=== PATIENT | female | born 1955 | race Caucasian/White ===

== ENCOUNTER 2018-07-14 10:09 | Emergency (ER) | payer OTHER ==
[~2018-07-14] VITALS: Ht 160 cm; Wt 61.2 kg
[~2018-07-14 10:09] MED LIST: ALEN70; Calcium + Vita1 EACH PO; DULO30 PO; FLONASE ALLERG9.9 ML; Percocet 5-3251 EACH PO; RANI150; SIMV10 PO; TRAZ50
[2018-07-14 10:49] LABS: BASOPHILS ABSOLUTE AUTO 0.03 K/mm3 (0.00-0.23); BASOPHILS PERCENT AUTO 1 % (0-2); EOSINOPHILS ABSOLUTE AUTO 0.05 K/mm3 (0.00-0.68); EOSINOPHILS PERCENT AUTO 1 % (0-6); Hemoglobin 11.4 g/dL (11.5-16.0); IMMATURE GRAN ABSOLUTE AUTO 0.02 K/mm3 (0.00-0.10); IMMATURE GRAN PERCENT AUTO 0 % (0-1); LYMPHOCYTES ABSOLUTE AUTO 1.44 K/mm3 (0.84-5.20); LYMPHOCYTES PERCENT AUTO 27 % (21-46); MONOCYTES ABSOLUTE AUTO 0.31 K/mm3 (0.16-1.47); MONOCYTES PERCENT AUTO 6 % (4-13); Mean Corpuscular HGB 31.2 pg (26.0-34.0); Mean Corpuscular HGB Conc 32.6 g/dL (31.5-36.5); Mean Corpuscular Volume 96 fL (80-100); NEUTROPHILS PERCENT AUTO 65 % (41-73); Platelet Count 372 K/mm3 (150-400); RDW Coefficient Variation 13.9 % (11.7-14.2); RDW Standard Deviation 49.5 fL (35.1-46.3); Red Blood Cell Count 3.65 M/mm3 (3.80-5.20); White Blood Cell Count 5.25 K/mm3 (4.00-11.30)
[2018-07-14 11:01] LABS: Source, Urine Clean Catch
[2018-07-14 11:10] LABS: Alanine Aminotransfer (ALT/SGP 22 U/L (12-78); Albumin, Blood 3.8 g/dL (3.4-5.0); Alk Phos 65 U/L (50-136); Anion Gap 7 mmol/L (6-16); Aspartate Aminotrans (AST/SGOT 22 U/L (12-37); Bilirubin, Total 0.3 mg/dL (0.1-1.0); Blood Urea Nitrogen 7 mg/dL (8-24); Bun/Creatinine Ratio 11.8 (12.0-20.0); CO2, Blood 28 mmol/L (21-32); Calcium, Blood 8.3 mg/dL (8.5-10.1); Chloride, Blood 107 mmol/L (98-108); Creatinine, Blood 0.59 mg/dL (0.40-1.00); Globulin, Blood 3.8 g/dL (2.2-4.0); Glomerular Filtration Rate >60 (60-); Glucose, Blood 115 mg/dL (70-99); Potassium, Blood 3.4 mmol/L (3.5-5.5); Sodium, Blood 142 mmol/L (136-145); Total Protein, Blood 7.6 g/dL (6.4-8.2)
[2018-07-14 11:11] LABS: Appearance, Urine Clear (Clear); Bilirubin, Urine Neg (Neg); Blood, Urine Neg (Neg); Color, Urine Yellow (P-Yellow); Glucose Qualitative, Urine Neg (Neg); Ketones, Urine 3+ (Neg); Leukocyte Esterase, Urine Neg (Neg); Nitrite, Urine Neg (Neg); Protein, Urine Neg (Neg); Urobilinogen, Urine NORM (Normal)
[2018-07-14] MEDS ORDERED: HEARTBURN RELI150 MG PO (13:43)
[2018-07-14] MEDS ORDERED: CHLO25 PO (14:35)
== END 2018-07-14 15:17 | disposition home or self-care (01) ==
LOC: ER 10:09
PROVIDERS: Physician Assistant
DX: T51.2X1A Toxic effect of 2-Propanol, accidental (unintentional), initial encounter (principal); F10.10 Alcohol abuse, uncomplicated; E78.00 Pure hypercholesterolemia, unspecified; Z79.899 Other long term (current) drug therapy; Z87.891 Personal history of nicotine dependence; Y90.1 Blood alcohol level of 20-39 mg/100 ml
CPT/HCPCS: 36415; 80053; 81003; 83690; 83930; 85025; 99284; G0480

== ENCOUNTER → 2019-05-04 | Outpatient (CLI) | payer OTHER ==
[~2019-05-04] MED LIST changes: +CHLO25 PO; +HEARTBURN RELI150 MG PO
[2019-05-05 09:40] LABS: Candida species (DNA Probe) Negative (NEGATIVE); G. vaginalis (DNA Probe) Negative (NEGATIVE); T. vaginalis (DNA Probe) Negative (NEGATIVE)
== END | disposition home or self-care (01) ==
LOC: LAB SHORT 10:54 → LAB 10:54
PROVIDERS: Advanced Practice Midwife
DX: N76.0 Acute vaginitis (principal)
CPT/HCPCS: 87480; 87510; 87660

== ENCOUNTER 2021-03-12 08:39 | Day surgery (SDC) | payer OTHER ==
[~2021-03-12] VITALS: Ht 162.6 cm; Wt 64.4 kg
== END 2021-03-12 10:50 | disposition home or self-care (01) ==
LOC: ORSCSDS 08:39
PROVIDERS: Internal Medicine Gastroenterology
PROC: 0DBN8ZX Excision of Sigmoid Colon, Via Natural or Artificial Opening Endoscopic, Diagnostic (ICD-10-PCS; principal; 2021-03-12 10:00)
PROC: 0DBH8ZX Excision of Cecum, Via Natural or Artificial Opening Endoscopic, Diagnostic (ICD-10-PCS; principal; 2021-03-12 10:00)
DX: Z12.11 Encounter for screening for malignant neoplasm of colon (principal); Z86.010 Personal history of colon polyps; Z80.0 Family history of malignant neoplasm of digestive organs; D12.0 Benign neoplasm of cecum; D12.5 Benign neoplasm of sigmoid colon; Z79.899 Other long term (current) drug therapy
CPT/HCPCS: 88305; J2704; J7120

== ENCOUNTER 2022-01-25 10:01 | Emergency (ER) | payer OTHER ==
[~2022-01-25] VITALS: Ht 162.6 cm; Wt 68.0 kg
[2022-01-25 10:31] LABS: BASOPHILS ABSOLUTE AUTO 0.04 K/mm3 (0.00-0.23); BASOPHILS PERCENT AUTO 1 % (0-2); EOSINOPHILS ABSOLUTE AUTO 0.14 K/mm3 (0.00-0.68); EOSINOPHILS PERCENT AUTO 2 % (0-6); Hematocrit 33.7 % (33.0-51.0); Hemoglobin 11.1 g/dL (11.5-16.0); IMMATURE GRAN ABSOLUTE AUTO 0.02 K/mm3 (0.00-0.10); IMMATURE GRAN PERCENT AUTO 0 % (0-1); LYMPHOCYTES ABSOLUTE AUTO 2.64 K/mm3 (0.84-5.20); LYMPHOCYTES PERCENT AUTO 31 % (21-46); MONOCYTES ABSOLUTE AUTO 0.53 K/mm3 (0.16-1.47); MONOCYTES PERCENT AUTO 6 % (4-13); Mean Corpuscular HGB 31.4 pg (26.0-34.0); Mean Corpuscular HGB Conc 32.9 g/dL (31.5-36.5); Mean Corpuscular Volume 95 fL (80-100); Mean Platelet Volume 9.2 fL (9.1-12.4); NEUTROPHILS PERCENT AUTO 60 % (41-73); Platelet Count 326 K/mm3 (150-400); RDW Coefficient Variation 12.3 % (11.7-14.2); RDW Standard Deviation 43.1 fL (35.1-46.3); Red Blood Cell Count 3.54 M/mm3 (3.80-5.20); White Blood Cell Count 8.47 K/mm3 (4.00-11.30)
[2022-01-25 10:44] LABS: Albumin, Blood 3.7 g/dL (3.4-5.0); Bilirubin, Total 0.3 mg/dL (0.1-1.0); Bun/Creatinine Ratio 19.9 (12.0-20.0); Creatinine, Blood 0.7 mg/dL (0.40-1.00); Globulin, Blood 3.6 g/dL (2.2-4.0); Potassium, Blood 3.7 mmol/L (3.5-5.5); Total Protein, Blood 7.3 g/dL (6.4-8.2)
[2022-01-25 11:06] LABS: Source, Urine Straight Cath
[2022-01-25 11:20] LABS: Appearance, Urine Clear (Clear); Bilirubin, Urine Neg (Neg); Blood, Urine Neg (Neg); Color, Urine Yellow (P-Yellow); Glucose Qualitative, Urine Neg (Neg); Ketones, Urine Neg (Neg); Leukocyte Esterase, Urine Neg (Neg); Nitrite, Urine Neg (Neg); Protein, Urine Neg (Neg); Urobilinogen, Urine NORM (Normal)
[2022-01-25 11:52] LABS: U Amphetamine Screen Not Detected; U Barbituate Screen Not Detected; U Benzodiazapine Screen Not Detected; U Buprenorphine Screen Not Detected; U Cannabinoids Screen Not Detected; U Cocaine Screen Not Detected; U Methadone Screen Not Detected; U Methamphetamine Screen Not Detected; U Opiates Screen DETECTED; U Oxycodone Screen Not Detected; U Phencyclidine Screen Not Detected; U Propoxyphene Screen Not Detected
[2022-01-25] MEDS ORDERED: ACETAMINOPHEN500 MG PO (12:59)
== END 2022-01-25 14:45 | disposition home or self-care (01) ==
LOC: ER 10:01
PROVIDERS: Emergency Medicine
DX: S00.83XA Contusion of other part of head, initial encounter (principal); S20.219A Contusion of unspecified front wall of thorax, initial encounter; S16.1XXA Strain of muscle, fascia and tendon at neck level, initial encounter; V48.5XXA Car driver injured in noncollision transport accident in traffic accident, initial encounter; Z72.89 Other problems related to lifestyle; Z87.891 Personal history of nicotine dependence
CPT/HCPCS: 70450; 71260; 72125; 74177; 80053; 81003; 83690; 85025; 93005; 93010; G0480; J1170; J2405; J7030; Q9967

== ENCOUNTER 2023-02-23 11:57 | Emergency (ER) | payer OTHER ==
[~2023-02-23] VITALS: Ht 162.6 cm; Wt 68.0 kg
[~2023-02-23 11:57] MED LIST changes: +ACETAMINOPHEN500 MG PO
[2023-02-23 12:47] LABS: BASOPHILS ABSOLUTE AUTO 0.03 K/mm3 (0.00-0.23); BASOPHILS PERCENT AUTO 0 % (0-2); EOSINOPHILS ABSOLUTE AUTO 0.05 K/mm3 (0.00-0.68); EOSINOPHILS PERCENT AUTO 1 % (0-6); Hematocrit 37.8 % (33.0-51.0); Hemoglobin 12.8 g/dL (11.5-16.0); IMMATURE GRAN ABSOLUTE AUTO 0.03 K/mm3 (0.00-0.10); IMMATURE GRAN PERCENT AUTO 0 % (0-1); LYMPHOCYTES ABSOLUTE AUTO 2.69 K/mm3 (0.84-5.20); LYMPHOCYTES PERCENT AUTO 34 % (21-46); MONOCYTES ABSOLUTE AUTO 0.57 K/mm3 (0.16-1.47); MONOCYTES PERCENT AUTO 7 % (4-13); Mean Corpuscular HGB Conc 33.9 g/dL (31.5-36.5); Mean Corpuscular Volume 89 fL (80-100); NEUTROPHILS ABSOLUTE AUTO 4.47 K/mm3 (1.96-9.15); NEUTROPHILS PERCENT AUTO 57 % (41-73); Platelet Count 313 K/mm3 (150-400); RDW Coefficient Variation 14.7 % (11.7-14.2); RDW Standard Deviation 47.8 fL (35.1-46.3); Red Blood Cell Count 4.26 M/mm3 (3.80-5.20); White Blood Cell Count 7.84 K/mm3 (4.00-11.30)
[2023-02-23 13:04] LABS: Albumin, Blood 4.3 g/dL (3.4-5.0); Albumin/Globulin Ratio 1.2 (0.8-1.8); Bilirubin, Total 0.3 mg/dL (0.1-1.0); Bun/Creatinine Ratio 6.5 (12.0-20.0); Creatinine, Blood 0.77 mg/dL (0.40-1.00); Globulin, Blood 3.6 g/dL (2.2-4.0); Potassium, Blood 3.1 mmol/L (3.5-5.5); Total Protein, Blood 7.9 g/dL (6.4-8.2)
[2023-02-23 15:47] LABS: Base Excess Venous 1.5 mmol/L; Bicarbonate Venous 25.3 mmol/L (24.0-30.0); PCO2 Venous 41.7 mmHg (38-42); pH Blood Venous 7.41 (7.34-7.37)
[2023-02-23 16:32] LABS: Ethanol (Alcohol), Blood, Med <3 mg/dL; Magnesium, Blood 2.3 mg/dL (1.6-2.4); Salicylate <1.7 mg/dL (2.8-20.0)
[2023-02-23 16:35] LABS: Influenza A, PCR NEGATIVE (NEGATIVE); Influenza B, PCR NEGATIVE (NEGATIVE); Resp Syncytial Virus, PCR NEGATIVE (NEGATIVE); SARS-Cov-2 (COVID-19) PCR, MMC NEGATIVE (NEGATIVE)
[2023-02-23 17:10] LABS: Beta-hydroxybutyrate 8.2 mg/dL (0.2-2.8); Phosphorus, Blood 2.3 mg/dL (2.5-4.9)
[2023-02-23 17:28] LABS: Acetaminophen, Random <2.0 ug/mL (10.0-30.0)
[2023-02-23] MEDS ORDERED: ONDA4ODT MM (18:32)
[2023-02-23 19:39] VITALS: BP 133/73
== END 2023-02-23 19:30 | disposition home or self-care (01) ==
LOC: ER 11:57
PROVIDERS: Emergency Medicine; Physician Assistant
DX: R11.2 Nausea with vomiting, unspecified (principal); Z79.899 Other long term (current) drug therapy; E78.5 Hyperlipidemia, unspecified; Z87.891 Personal history of nicotine dependence
CPT/HCPCS: 0241U; 74177; 80053; 82010; 82803; 83690; 83735; 84100; 84484; 85025; 93005; 93010; 96374-59; 99284-25; G0480; J2405; J7030; Q9967

== ENCOUNTER 2023-03-03 09:05 | Emergency (ER) | payer OTHER | END 2023-03-03 11:17 | disposition home or self-care (01) | LOC: ER 09:05 | DX: R11.2 Nausea with vomiting, unspecified (principal); Z79.899 Other long term (current) drug therapy; E78.5 Hyperlipidemia, unspecified; Z87.891 Personal history of nicotine dependence ==

== ENCOUNTER 2023-03-10 09:07 | Inpatient (IN) | payer OTHER ==
[~2023-03-10] VITALS: Ht 162.6 cm; Wt 66.8 kg
[~2023-03-10 09:07] MED LIST changes: -HEARTBURN RELI150 MG PO; +ONDA4ODT MM; +Omeprazole20 M1 PO; +PHENERGAN25 MG PR; -SIMV10 PO; +Zocor10 MG PO
[2023-03-10 11:05] LABS: BASOPHILS ABSOLUTE AUTO 0.03 K/mm3 (0.00-0.23); BASOPHILS PERCENT AUTO 1 % (0-2); EOSINOPHILS ABSOLUTE AUTO 0.02 K/mm3 (0.00-0.68); EOSINOPHILS PERCENT AUTO 0 % (0-6); Hematocrit 30.1 % (33.0-51.0); Hemoglobin 10.4 g/dL (11.5-16.0); IMMATURE GRAN ABSOLUTE AUTO 0.03 K/mm3 (0.00-0.10); IMMATURE GRAN PERCENT AUTO 1 % (0-1); LYMPHOCYTES ABSOLUTE AUTO 2.23 K/mm3 (0.84-5.20); LYMPHOCYTES PERCENT AUTO 37 % (21-46); MONOCYTES ABSOLUTE AUTO 0.77 K/mm3 (0.16-1.47); MONOCYTES PERCENT AUTO 13 % (4-13); Mean Corpuscular HGB 30.3 pg (26.0-34.0); Mean Corpuscular HGB Conc 34.6 g/dL (31.5-36.5); Mean Corpuscular Volume 88 fL (80-100); Mean Platelet Volume 9.3 fL (9.1-12.4); NEUTROPHILS ABSOLUTE AUTO 2.94 K/mm3 (1.96-9.15); NEUTROPHILS PERCENT AUTO 49 % (41-73); Platelet Count 190 K/mm3 (150-400); RDW Coefficient Variation 14.6 % (11.7-14.2); RDW Standard Deviation 47.8 fL (35.1-46.3); Red Blood Cell Count 3.43 M/mm3 (3.80-5.20); White Blood Cell Count 6.02 K/mm3 (4.00-11.30)
[2023-03-10 11:33] LABS: Albumin/Globulin Ratio 0.9 (0.8-1.8); Bilirubin, Total 0.2 mg/dL (0.1-1.0); Bun/Creatinine Ratio 3.2 (12.0-20.0); Calcium, Blood 7.9 mg/dL (8.5-10.1); Creatinine, Blood 0.62 mg/dL (0.40-1.00); Globulin, Blood 3.5 g/dL (2.2-4.0); Potassium, Blood 2.7 mmol/L (3.5-5.5); Total Protein, Blood 6.5 g/dL (6.4-8.2)
[2023-03-10 12:00] LABS: Source, Urine Straight Cath
[2023-03-10 12:03] LABS: Appearance, Urine Clear (Clear); Bilirubin, Urine Neg (Neg); Blood, Urine Neg (Neg); Color, Urine Yellow (P-Yellow); Glucose Qualitative, Urine Neg (Neg); Ketones, Urine 3+ (Neg); Leukocyte Esterase, Urine Neg (Neg); Nitrite, Urine Neg (Neg); Protein, Urine 1+ (Neg); Specific Gravity, Urine 1.005 (1.003-1.022); Urobilinogen, Urine NORM (Normal)
[2023-03-10] MEDS ORDERED: BUSP5 PO (14:12)
[2023-03-10] MEDS ORDERED: NEURONTIN300 MG PO (14:12)
[2023-03-10] MEDS ORDERED: CELE100 PO (14:12)
[2023-03-10 14:38] VITALS: BP 128/70
[2023-03-10] MEDS ORDERED: GABA300 PO (14:39)
--- NOTE | 2023-03-10 17:18 | NUR ---
PT ARRIVED TO THE UNIT FROM ED. ORIENTED TO THE ROOM. SHE REPORTS SHE IS NOT CURRENTLY HAVING NAUSEA. SHE FELL ASLEEP SHORTLY AFTER ARRIVAL AND HAS BEEN SLEEPING SINCE. HER BED IS IN THE LOW POSITION AND CALL LIGHT IS WITIN REACH.
[2023-03-10 19:37] VITALS: BP 117/66
--- NOTE | 2023-03-10 23:26 | NUR ---
CALLED HOSPITALIST- PT C/O GERD AND NAUSEA, ZOFRAN NOT AVAILABLE AGAIN UNTIL 0100 IV POTASSIUM COMPLETED LAB REDRAW SHOWED LEVEL UP FROM 2.7 TO 3.3 REPEAT POTASSIUM CHEC FOR AM AND OT ORDER FOR 40MEQ IV NOW. REGLAN 5MG ORDERED Q6P.
--- NOTE | 2023-03-11 03:31 | NUR ---
SHIFT SUMMARY- PT ALERT, ORIENTED AND INDEPEDNED TO THE BEDSIDE COMMODE. PT HAS HAD TWO BOUTS OF DIARRHEA T/O THE NIGHT. REPEAT POTASSIUM CAME BACK 3.3, SPOKE TO NIGHT HOSPITALIST ABOUT NAUSEA MEDS, AND RECIEVED A NEW ORDER FOR POTASSIUM WELL. PT IS NEARLY FINISHED INFUSING THE ADDITIONAL 40MEQ OF POTASSIUM, BMP ORDERED FOR THIS AM. REGLAN SEEMS TO HAVE WORKED WELL TO MANAGE THE PT NAUSEA. PT IN BED CALL LIGHT IN REACH, NS RUNNING AT 125ML/HR CONCURRENTLY WITH POTASSIUM. NO CURRENT S&S OF DISTRESS NOTED.
[2023-03-11 04:56] LABS: BASOPHILS ABSOLUTE AUTO 0.02 K/mm3 (0.00-0.23); BASOPHILS PERCENT AUTO 0 % (0-2); EOSINOPHILS ABSOLUTE AUTO 0.02 K/mm3 (0.00-0.68); EOSINOPHILS PERCENT AUTO 0 % (0-6); Hematocrit 32.2 % (33.0-51.0); Hemoglobin 10.7 g/dL (11.5-16.0); IMMATURE GRAN ABSOLUTE AUTO 0.01 K/mm3 (0.00-0.10); IMMATURE GRAN PERCENT AUTO 0 % (0-1); LYMPHOCYTES ABSOLUTE AUTO 1.63 K/mm3 (0.84-5.20); LYMPHOCYTES PERCENT AUTO 36 % (21-46); MONOCYTES ABSOLUTE AUTO 0.57 K/mm3 (0.16-1.47); MONOCYTES PERCENT AUTO 13 % (4-13); Mean Corpuscular HGB Conc 33.2 g/dL (31.5-36.5); Mean Corpuscular Volume 90 fL (80-100); Mean Platelet Volume 9.2 fL (9.1-12.4); NEUTROPHILS ABSOLUTE AUTO 2.32 K/mm3 (1.96-9.15); NEUTROPHILS PERCENT AUTO 51 % (41-73); Platelet Count 197 K/mm3 (150-400); RDW Standard Deviation 49.7 fL (35.1-46.3); Red Blood Cell Count 3.57 M/mm3 (3.80-5.20); White Blood Cell Count 4.57 K/mm3 (4.00-11.30)
[2023-03-11 05:18] LABS: Bun/Creatinine Ratio 3.5 (12.0-20.0); Calcium, Blood 7.7 mg/dL (8.5-10.1); Creatinine, Blood 0.57 mg/dL (0.40-1.00); Magnesium, Blood 1.4 mg/dL (1.6-2.4); Potassium, Blood 3.7 mmol/L (3.5-5.5)
[2023-03-11 05:23] VITALS: BP 129/66
[2023-03-11 07:44] VITALS: BP 136/72
[2023-03-11 15:35] VITALS: BP 137/87
--- NOTE | 2023-03-11 17:25 | NUR ---
SHIFT SUMMARY- PT IS A/O, PLESANT AND COOPERATIVE. SHE HAD ONE EPISODE OF VOMITING THIS SHIFT. AND SHE HAD ONE EPISODE OF DIARHEA. SHE WENT FOR AN ABDOMINAL CT THIS SHIFT. LACTIC ACID WAS ELEVATED SPOKE TO DR. AGUILAR. SHE SLEPT INTERMITENTLY THIS SHIFT. HER BED IS IN THE LOW POSITON AND CALL LIGHT IS WITIN REACH
--- NOTE | 2023-03-11 19:00 | NUR ---
assumed care of pt- REPORT COMPLETED WITH DAY RN. PT PLACED IN ISO FOR R/O C-DIFF UNABLE TO OBTAIN SAMPLE ON DAY SHIFT. IVF CONTINUE AT 125ML/HR. LACTIC CRITICAL AT 2.2 AND REFLEX WAS 2.5. PT NOT ON ABX. PT HAS HAD THE GI SYMPTOMS SINCE HER RECENT SURGERY. CALLED DR AGUILAR AND REQUESTED BLOOD Cx, WITH THE ELEVATED LACTIC, DESPITE FLUID RESUSSITATION AND MILD TACHY HR, PT HAS NOT HAD ANY FEVERS BUT SHE JUST DOESNT FEEL WELL. RECIEVED ORDER FOR MORNING LABS CBC, BMP AND BLOOD Cx NOW.
[2023-03-11 19:53] VITALS: BP 129/64
[2023-03-11 21:05] VITALS: BP 143/82
[2023-03-11 21:45] LABS: Adenovirus F 40/41 Not Detected (NOT DETECT); Astrovirus Not Detected (NOT DETECT); Campylobacter Sp Not Detected (NOT DETECT); Cryptosporidium Not Detected (NOT DETECT); Cyclospora Cayetanensis Not Detected (NOT DETECT); E. Coli O157 Not Detected (NOT DETECT); Entamoeba Histolytica Not Detected (NOT DETECT); Enteroaggregative E. coli-EAEC Not Detected (NOT DETECT); Enteropathogenic E. coli-EPEC Not Detected (NOT DETECT); Enterotoxigenic E. coli-ETEC Not Detected (NOT DETECT); Giardia Lamblia Not Detected (NOT DETECT); Norovirus GI/GII Not Detected (NOT DETECT); Plesiomonas Shigelloides Not Detected (NOT DETECT); Rotavirus A Not Detected (NOT DETECT); Salmonella Sp Not Detected (NOT DETECT); Sapovirus Not Detected (NOT DETECT); Shiga Toxin-prod E. coli-STEC Not Detected (NOT DETECT); Shigella/Enteroin E. coli-EIEC Not Detected (NOT DETECT); Vibrio Cholerae Not Detected (NOT DETECT); Vibrio Sp Not Detected (NOT DETECT); Yersinia Enterocolitica Not Detected (NOT DETECT)
[2023-03-12 03:07] VITALS: BP 128/65
--- NOTE | 2023-03-12 03:54 | NUR ---
SHIFT SUMMARY- PT ALERT AND ORIENTED, INDEPENDENT TO THE BSC. IVF RUNNING AT 125ML/HR. GI PANEL NEGATIVE FOR ANY INFECTION. BLOOD CULTURES DRAWN LAST NIGHT. PT HAS SLEPT T/O THE NIGHT, WITH ONE STOOL AND SEVERAL URINE VOIDS. PT HAS DENIED PAIN T/O THE SHIFT, PT DOES SEEM TO FEEL A LITTLE BETTER THAN SHE DID LAST NIGHT. PT IN BED SLEEPING AT THIS ITME, CALL LIGHT IN REACH NO S&S OF DISTRESS NOTED.
[2023-03-12 05:03] LABS: BASOPHILS ABSOLUTE AUTO 0.02 K/mm3 (0.00-0.23); BASOPHILS PERCENT AUTO 1 % (0-2); EOSINOPHILS ABSOLUTE AUTO 0.04 K/mm3 (0.00-0.68); EOSINOPHILS PERCENT AUTO 1 % (0-6); Hematocrit 34.5 % (33.0-51.0); Hemoglobin 11.6 g/dL (11.5-16.0); IMMATURE GRAN ABSOLUTE AUTO 0.03 K/mm3 (0.00-0.10); IMMATURE GRAN PERCENT AUTO 1 % (0-1); LYMPHOCYTES ABSOLUTE AUTO 1.12 K/mm3 (0.84-5.20); LYMPHOCYTES PERCENT AUTO 27 % (21-46); MONOCYTES ABSOLUTE AUTO 0.61 K/mm3 (0.16-1.47); MONOCYTES PERCENT AUTO 15 % (4-13); Mean Corpuscular HGB 29.7 pg (26.0-34.0); Mean Corpuscular HGB Conc 33.6 g/dL (31.5-36.5); Mean Corpuscular Volume 89 fL (80-100); Mean Platelet Volume 9.5 fL (9.1-12.4); NEUTROPHILS ABSOLUTE AUTO 2.28 K/mm3 (1.96-9.15); NEUTROPHILS PERCENT AUTO 56 % (41-73); Platelet Count 237 K/mm3 (150-400); RDW Coefficient Variation 14.9 % (11.7-14.2); RDW Standard Deviation 48.3 fL (35.1-46.3)
[2023-03-12 05:34] LABS: Bun/Creatinine Ratio 1.8 (12.0-20.0); Calcium, Blood 8.2 mg/dL (8.5-10.1); Creatinine, Blood 0.54 mg/dL (0.40-1.00); Potassium, Blood 3.1 mmol/L (3.5-5.5)
[2023-03-12 07:28] VITALS: BP 144/73
--- NOTE | 2023-03-12 11:27 | NUR ---
LACTIC ACID NOTIFIED OF ELEVATED LACTIC RESULT FROM THIS AM'S BLOOD DRAW, 2.6. NEW ORDERS RECEIVED FOR ADV DIET TO FULL LIQ.
--- NOTE | 2023-03-12 13:26 | NUR ---
FULL LIQ LUNCH PT STATES SHE GARY WELL THE FULL LIQ DIET AT LUNCH. DENIES NAUSEA & PAIN.
[2023-03-12 15:47] VITALS: BP 142/78
--- NOTE | 2023-03-12 17:37 | NUR ---
SHIFT SUMMARY A&O X 4. VSS. IS PLEASANT & COOPERATIVE WITH ALL CARE. IS INDEPENDENT IN THE ROOM FOR RESTROOM USE. IVF'S INFUSING PER MD ORDER. NO C/O PAIN. PT GARY A FULL LIQ DIET AT LUNCH TODAY. PT RECEIVED A DOSE OF IV ANTIBIOTICS PER MD ORDER. PLAN IS FOR HOME DC ONCE CLINICALLY STABLE FOR DC.
[2023-03-12 20:43] VITALS: BP 131/75
[2023-03-13 04:07] VITALS: BP 136/77
--- NOTE | 2023-03-13 04:33 | NUR ---
SHIFT SUMMARY; NO ACUTE CHANGES OVERNIGHT. THE PT IS AXO X4 AND INDEPENDENT IN THE ROOM. THE PT HAS BEEN SLEEPING FOR THE MAJORITY OF THE NIGHT. THE PT HAS NS RUNNING AT 125MLS/HR. THE PT DENIES ANY CHEST PAIN/PRESSURE, SOB, N/V OR PAIN THIS SHIFT. CURRENTLY THE PT IS SLEEPING IN BED WITH THE BED IN THE LOWEST POSITION AND THE CALL LIGHT AT BEDSIDE. FIRE SAFETY MAINTAINED T/O THE NIGHT.
[2023-03-13 05:20] LABS: BASOPHILS ABSOLUTE AUTO 0.01 K/mm3 (0.00-0.23); BASOPHILS PERCENT AUTO 0 % (0-2); EOSINOPHILS ABSOLUTE AUTO 0.08 K/mm3 (0.00-0.68); EOSINOPHILS PERCENT AUTO 2 % (0-6); Hematocrit 31.3 % (33.0-51.0); Hemoglobin 10.6 g/dL (11.5-16.0); IMMATURE GRAN ABSOLUTE AUTO 0.03 K/mm3 (0.00-0.10); IMMATURE GRAN PERCENT AUTO 1 % (0-1); LYMPHOCYTES ABSOLUTE AUTO 1.05 K/mm3 (0.84-5.20); LYMPHOCYTES PERCENT AUTO 30 % (21-46); MONOCYTES ABSOLUTE AUTO 0.53 K/mm3 (0.16-1.47); MONOCYTES PERCENT AUTO 15 % (4-13); Mean Corpuscular HGB Conc 33.9 g/dL (31.5-36.5); Mean Corpuscular Volume 89 fL (80-100); Mean Platelet Volume 9.5 fL (9.1-12.4); NEUTROPHILS ABSOLUTE AUTO 1.77 K/mm3 (1.96-9.15); NEUTROPHILS PERCENT AUTO 51 % (41-73); Platelet Count 215 K/mm3 (150-400); RDW Coefficient Variation 14.9 % (11.7-14.2); RDW Standard Deviation 48.6 fL (35.1-46.3); Red Blood Cell Count 3.53 M/mm3 (3.80-5.20); White Blood Cell Count 3.47 K/mm3 (4.00-11.30)
[2023-03-13 05:42] LABS: Bun/Creatinine Ratio 1.8 (12.0-20.0); Calcium, Blood 7.9 mg/dL (8.5-10.1); Creatinine, Blood 0.55 mg/dL (0.40-1.00); Potassium, Blood 3.3 mmol/L (3.5-5.5)
[2023-03-13 07:58] VITALS: BP 148/82
[2023-03-13] MEDS ORDERED: VISBIOME 112.51 EACH PO (11:03)
[2023-03-13] MEDS ORDERED: DOXY100 PO (11:04)
--- NOTE | 2023-03-13 11:44 | NUR ---
PT DISCHARGED THE PT VERBALIZED UNDERSTANDING OF THE DC INSTRUCTION. THE PTS PRESCRIPTIONS WERE FAXED TO [facility] REQUESTED. THE PT WAS REMINDED TO FOLLOW UP WITH HER PCP. THE PT WAS TRANSFERED VIA WHEELCHAIR ACCOMPANIED BY THE MECHANICAL EQUIPMENT TEST ENGINEER.
== END 2023-03-13 13:42 | disposition home or self-care (01) | DRG 392 ==
LOC: ER 09:07 → MEDS 09:08 → ER 09:08 → MEDS 14:27
PROVIDERS: Emergency Medicine; Internal Medicine; ADMIT Internal Medicine
DX: K52.9 Noninfective gastroenteritis and colitis, unspecified (principal); E87.20 Acidosis, unspecified; E87.6 Hypokalemia; M79.7 Fibromyalgia; F41.9 Anxiety disorder, unspecified; E78.5 Hyperlipidemia, unspecified; K21.9 Gastro-esophageal reflux disease without esophagitis; E83.42 Hypomagnesemia; M81.0 Age-related osteoporosis without current pathological fracture; Z90.49 Acquired absence of other specified parts of digestive tract; Z87.81 Personal history of (healed) traumatic fracture; Z98.890 Other specified postprocedural states; Z87.891 Personal history of nicotine dependence; Z79.899 Other long term (current) drug therapy
CPT/HCPCS: 36415; 51701; 74160; 80048; 80053; 83605; 83690; 83735; 84132; 84484; 85025; 87040; 87507; 93005; 93010; 96361; 96361-59; 96365; 96366; 96372; 96374-59; 96375; 96375-59; 96376; 96376-59; 99285-25; A9270; G0378; J0696; J1650; J1790; J2405; J2765; J3475; J3480; J7030; J7050; Q9967

== ENCOUNTER 2024-05-09 09:07 | Day surgery (SDC) | payer OTHER ==
[~2024-05-09] VITALS: Ht 162.6 cm; Wt 65.4 kg
[~2024-05-09 09:07] MED LIST changes: +BUSP5 PO; +CELE100 PO; +DOXY100 PO; +GABA300 PO; +Lactated Ringer's 1,000 ML IV ONE; +NEURONTIN300 MG PO; +VISBIOME 112.51 EACH PO; +propofoL 50 ML IV ONE
[2024-05-09] MEDS ORDERED: Diflucan150 MG (10:18)
[2024-05-09] MEDS ORDERED: TURMERIC CURCU1 EACH (10:19)
[2024-05-09] MEDS ORDERED: VENL37.5 (10:19)
[2024-05-09] MEDS ORDERED: Estrace Vagin42.5 GM (10:23)
[2024-05-09] MEDS ORDERED: Lactated Ringer's 1,000 ML IV ONE (10:56)
[2024-05-09 12:18] VITALS: BP 117/57
== END 2024-05-09 12:08 | disposition home or self-care (01) ==
LOC: ORSCSDS 09:07
PROVIDERS: Internal Medicine Gastroenterology
PROC: 0DJD8ZZ Inspection of Lower Intestinal Tract, Via Natural or Artificial Opening Endoscopic (ICD-10-PCS; principal; 2024-05-09 10:45)
DX: Z12.11 Encounter for screening for malignant neoplasm of colon (principal); Z86.0101 Personal history of adenomatous and serrated colon polyps; Z80.0 Family history of malignant neoplasm of digestive organs; Z79.899 Other long term (current) drug therapy
CPT/HCPCS: J2704; J7120